=== PATIENT | male | born 1995 | race Caucasian/White ===

== ENCOUNTER 2017-01-02 16:58 | Emergency (ER) | payer OTHER ==
[2017-01-02 17:16] LABS: BILIRUBIN 1+ mg/dL (NEGATIVE); BLOOD 1+ Ery/uL (NEGATIVE); CLARITY CLEAR (CLEAR); COLOR YELLOW (YELLOW); GLUCOSE (U) NORMAL (NORMAL); KETONE (U) NEGATIVE (NEGATIVE); LEUKOCYTES NEGATIVE Leu/uL (NEGATIVE); NITRITE NEGATIVE (NEGATIVE); PROTEIN TRACE (LOW) mg/dL (NEGATIVE); SPECIFIC GRAVITY >=1.030 (1.001-1.030); UROBILINOGEN 0.2 mg/dL (0.2-1.0)
[2017-01-02 17:22] LABS: SQUAMOUS EPITHELIAL CELLS RARE; URINARY RBC RARE
[2017-01-02 18:08] LABS: BASOPHIL 0.2 % (0-2); EOSINOPHIL 1.2 % (0-5); HCT 44.4 % (42.0-52.0); HGB 15.8 g/dl (13.2-18.0); LYMPHOCYTE 28.7 % (15-48); MCH 29.1 pg (25.0-31.0); MCHC 35.6 g/dL (32.0-36.0); MCV 81.8 fL (78.0-100.0); MONOCYTE 6.5 % (0-12); MPV 8.4 fL (6.0-9.5); NEUTROPHIL 63.4 % (41-80); PLT 305 K/uL (150-400); RBC 5.43 M/uL (4.70-6.00); RDW 12.7 % (11.5-14.0)
[2017-01-02 18:18] LABS: ALBUMIN 4.8 g/dL (3.5-5.0); BILIRUBIN - TOTAL 0.4 mg/dL (0.1-1.0); GLOBULIN (CALCULATION) 2.9 g/dL (2.2-4.2); POTASSIUM 3.9 mmol/L (3.5-5.1); TOTAL PROTEIN 7.7 g/dL (6.4-8.3)
== END 2017-01-02 17:50 | disposition left against medical advice (07) ==
LOC: FER 16:58
PROVIDERS: Emergency Medicine
DX: R10.9 Unspecified abdominal pain (principal); R11.0 Nausea; Z53.8 Procedure and treatment not carried out for other reasons
CPT/HCPCS: 36415; 80053; 81001; 82150; 83690; 85025

== ENCOUNTER 2017-01-02 19:01 | Emergency (ER) | payer OTHER | END 2017-01-02 21:25 | disposition home or self-care (01) | LOC: FER 19:01 | DX: R10.31 Right lower quadrant pain (principal); R82.90 Unspecified abnormal findings in urine; Z88.0 Allergy status to penicillin | CPT/HCPCS: 87088; J1885 ==

== ENCOUNTER 2022-03-15 11:49 | Emergency (ER) | payer OTHER ==
[~2022-03-15 11:49] MED LIST: FLEXERIL5 MG PO; VOLTAREN **OUT50 MG PO
[2022-03-15] MEDS ORDERED: ROBAXIN750 MG PO (13:30)
[2022-03-15] MEDS ORDERED: NORCO 5-325 TA1 EACH PO (13:30)
[2022-03-15] MEDS ORDERED: ONDANSETRON ODT4 MG PO (13:30)
[2022-03-15] MEDS ORDERED: NAPROXEN500 MG PO (13:30)
== END 2022-03-15 13:59 | disposition home or self-care (01) ==
LOC: FER 11:49
DX: S16.1XXA Strain of muscle, fascia and tendon at neck level, initial encounter (principal); S39.012A Strain of muscle, fascia and tendon of lower back, initial encounter; Z88.0 Allergy status to penicillin; V49.40XA Driver injured in collision with unspecified motor vehicles in traffic accident, initial encounter
CPT/HCPCS: 70450; 72125; 72128; 72131; Q9967